=== PATIENT | female | born 1965 | race Caucasian/White ===

== ENCOUNTER 2023-03-25 23:01 | Emergency (ER) | payer MEDICAID, OTHER ==
[~2023-03-25] VITALS: Ht 170.2 cm; Wt 72.6 kg
[2023-03-25 23:04] VITALS: BP 139/60; PULSE 80; RESP 18; TEMP 97.8; O2SAT 98
[2023-03-26] MEDS: MORPHINE SULFATE 4 MG/ML SYR IM ONE (03:14)
[2023-03-26] MEDS ORDERED: IBUP-2213 PO (04:16)
[2023-03-26 05:13] VITALS: BP 133/82; PULSE 80; RESP 18; TEMP 97.8; O2SAT 98
== END 2023-03-26 05:13 | disposition home or self-care (01) ==
LOC: MED 23:01
DX: R51.9 Headache, unspecified (principal); M54.50 Low back pain, unspecified; T74.21XA Adult sexual abuse, confirmed, initial encounter; Z79.899 Other long term (current) drug therapy
CPT/HCPCS: 96372; 99283; J2270